=== PATIENT | male | born 2000 | race African-American/Black ===

== ENCOUNTER 2023-12-02 06:54 | Emergency (ER) | payer MEDICAID, SELFPAY ==
[2023-12-02 07:09] VITALS: BP 131/75; PULSE 81; RESP 16; TEMP 36.5; O2SAT 96; BMI 24.8
--- NOTE | 2023-12-02 07:45 | ED.DENTAL ---
HPI - Dental/Oral General Chief complaint: Dental/Oral Stated complaint: dental pain Time Seen by Provider: 12/02/23 07:15 Source: patient Mode of arrival: ambulatory Limitations: no limitations History of Present Illness HPI Narrative: hx of dental pain in past worsening overnight has dentist appointment today no fevers able to open mouth no recent trauma MD Complaint: tooth pain Location: Tooth # (17) Onset (ago): day(s) (1) Duration: constant Severity: moderate Relieving factors: nothing Exacerbating factors: chewing Context: history of dental caries Associated symptoms: gum swelling Treatment prior to arrival: oral analgesic Related Data Previous Rx's Medication Instructions Recorded amoxicillin 500 mg capsule 500 mg PO BID #13 caps 12/02/23 Allergies Allergy/AdvReac Type Severity Reaction Status Date / Time No Known Allergies Allergy Verified 12/02/23 07:08 Review of Systems Review of Systems: Constitutional : No Fever, No Chills ENT/Mouth : No swallowing difficulty, no change in voice, positive dental pain, positive jaw pain, no facial swelling Eyes: No Eye Pain, No Swelling Cardiovascular : No Chest Pain, No SOB Respiratory : No Cough, No Sputum Gastrointestinal : No Nausea, No Vomiting, No Diarrhea Genitourinary : No Dysuria Musculoskeletal : No Myalgias Skin : No rash Neuro : No Weakness, No Numbness, No Headache All other systems reviewed and are negative PMFSH Social History Social History Advance Directives: No Advance Directives Information Provided: No Physical Exam Vital Signs: Vital Signs: Last Vital Signs Temp 97.7 F 12/02/23 07:09 Pulse 81 12/02/23 07:09 Resp 16 12/02/23 07:09 BP 131/75 12/02/23 07:09 Pulse Ox 96 12/02/23 07:09 O2 Del Method Room Air 12/02/23 07:09 BMI result Body Mass Index 24.8 Appearance: Alert. Oriented X3. No acute distress. Eyes: Pupils equal, round and reactive to light. ENT: Pharynx normal. no trismus, some mild diffuse decay, L lower last molar is impacted but no fluctuance or abscess noted, no submandibular or sublingual swelling Neck: Normal inspection. Neck supple. CVS: Normal heart rate and rhythm. Respiratory: No respiratory distress. Abdomen: Soft and non-tender. Skin: Skin warm and dry. Normal skin color. Extremities: No lower extremity edema. Neuro: Oriented X 3. No motor deficit. No sensory deficit. Medical Decision Making Medical Decision Making [facility] Narrative: 22 yo male no sig PMH here with intermittent chronic L lower molar pain - not toxic no trismus no signs of abscess only tried tylenol at home has dentist appointment today no signs of deeper space infection will need IM toradol and amoxicillin follow up with dentist today Differential Diagnosis Differential Diagnoses: The differential diagnosis associated with the presentation includes toothache, dental caries Admission/Observation Consideration of admission/observation: Escalation of care including admission/observation considered no signs of deeper space infection stable for DC Independent Historian Clinical information obtained from an independent historian. History obtained from or confirmed by: Other (family) Prescription Management I considered prescription management with: Pain Medication and Antibiotic Discharge Plan Discharge Clinical Impression: Toothache Patient Disposition: Home, Self-Care Instructions: Toothache (ED) Additional Instructions: return for worsening pain, fevers, facial swelling, inability to swallow or any other concerns. no NSAIDs (tylenol is okay) until 3pm today follow up with dentist as planned today Prescriptions: New amoxicillin 500 mg capsule 500 mg PO BID Qty: 13 0RF
[2023-12-02] MEDS: Amoxicillin 500 MG CAPSULE PO (08:04)
[2023-12-02] MEDS: Ketorolac Tromethamine 30 MG/ML VIAL IM (08:04)
== END 2023-12-02 08:08 | disposition home or self-care (01) ==
PROVIDERS: Emergency Provider Emergency Medicine
DX: K08.89 Other specified disorders of teeth and supporting structures (principal)
CPT/HCPCS: 96372; 99283; 99284; J1885

== ENCOUNTER 2025-03-30 11:03 | Emergency (ER) | payer MEDICAID, SELFPAY ==
[2025-03-30 12:01] VITALS: BP 129/55; PULSE 58; RESP 18; TEMP 36.6; O2SAT 98; BMI 26.5
--- NOTE | 2025-03-30 12:02 | ED.BACK ---
HPI - Back Pain/Injury General Chief Complaint: Back Pain/Injury Stated Complaint: Lower back pain Time Seen by Provider: 03/30/25 12:06 Source: RN notes reviewed and old records reviewed History of Present Illness ED Provider: Nya Link PA-C HPI Narrative: 24-year-old male with no significant past medical history presenting to the ED complaining of left sudden low back pain since 05:00. Reports pain is intermittent. Admits to playing football outside with brothers yesterday and jumping knee ear to catch a ball which he believes caused symptoms. Denies direct injury/ trauma or fall. Denies radiation of pain down lower extremity to abdomen. Denies numbness, tingling, weakness, incontinence/ retention, fever Related Data Previous Rx's ?Medication ?Instructions ?Recorded amoxicillin 500 mg capsule 500 mg PO BID #13 caps 12/02/23 acetaminophen 500 mg tablet 500 mg PO Q6H PRN fever or pain 03/30/25 (Tylenol Extra Strength) #14 tabs cyclobenzaprine 5 mg tablet 5 mg PO Q8H PRN pain (scale score 03/30/25 7-10) 5 days #14 tabs lidocaine 5 % topical patch 1 patch topical DAILY PRN pain #30 03/30/25 (Lidoderm) ea naproxen 500 mg tablet 500 mg PO BID PRN pain 10 days #20 03/30/25 tabs Allergies Allergy/AdvReac Type Severity Reaction Status Date / Time No Known Allergies Allergy Verified 03/30/25 12:04 Review of Systems Review of Systems: Yes all other systems are reviewed and are negative Constitutional: Constitutional: Reports as per HPI Neurologic: Denies Sensory deficit (Neuro) [facility] Past Medical History Attestation statement: The following information was validated with the patient. Source: old records reviewed Physical Exam Vital Signs: Vital Signs: Last Vital Signs Temp 98 F 03/30/25 12:01 Pulse 58 03/30/25 12:01 Resp 18 03/30/25 12:01 BP 129/55 L 03/30/25 12:01 Pulse Ox 98 03/30/25 12:01 BMI result Body Mass Index 26.5 Const: General: cooperative, healthy appearing and no acute distress Orientation/consciousness: patient oriented x3 Limitations: no limitations HEENT: Head: Yes normal to inspection and Yes atraumatic Ears: hearing grossly normal bilaterally General nose exam: Normal external nose present Face and sinus: Yes normal facial exam Eyes: General: appearance normal, both eyes and all related structures EOM: EOMs intact bilaterally Neck: Neck: Yes normal visual inspection and Yes no meningeal signs Resp: Effort & Inspection: normal respiratory effort and no respiratory distress Cardio: Rate: regular rate GI: Inspection: Yes normal to inspection Palpation (GI): Soft to palpation, nontender, no guarding and not rigid : General: Yes no CVA tenderness Back/Spine/Pelvis: Other: No midline cervical/thoracic/lumbar spinous tenderness/step-off or deformity. + left-sided lower lumbar MSK reproducible tenderness to palpation. No erythema / ecchymosis or rash. No reproducible rib tenderness. No crepitus. Back: no CVA tenderness Skin: Rashes: no rashes Wounds: no wounds Neuro: Other: Strength intact throughout. No saddle anesthesia. Sensation intact to light touch. Neurovascular intact distally General: patient oriented x3, gait normal, tone normal, moves all extremities, no meningeal signs and no focal motor deficits Cranial nerves: Yes CN's II-XII intact bilaterally Gait exam (Neuro): Normal gait present Motor exam (neuro): 5/5 motor strength present throughout Sensory Exam: No Sensory deficit (Neuro) Extrem: General: Yes normal to inspection Medical Decision Making Medical Decision Making MDM Narrative: 24-year-old male with no significant past medical history presenting to the ED complaining of left sudden low back pain since 05:00. On exam vital signs stable, NAD, nontoxic appearing, abdomen is soft and nontender, no midline spinous tenderness throughout. Reproducible left lumbar MSK tenderness. No red flag symptoms. No saddle anesthesia. Ambulating with steady gait. Concern for MSK pain /strain /spasming. Lower suspicion for fracture, cauda equina, cord compression, epidural abscess, renal stone Plan: Pain control, PCP follow up Please refer to course for remaining clinical decision making, interpretation of labs/imaging results, and discussions with consultants and/or family members. Results discussed with patient including worrisome signs and symptoms and strict return precautions, and when to return to the emergency department. They verbalized understanding and feel safe for discharge at this time. Differential Diagnosis Differential Diagnoses: The differential diagnosis associated with the presentation includes As above Independent Historian x-rays considered however not needed at this time External Record Review External record reviewed: Inpatient record, Office record, Outpatient record, Prior outpatient labs, Prior outpatient radiology, Primary care record and Outside ED record Tests considered The following testing was considered but not selected: As above Prescription Management I considered prescription management with: Other Chronic Conditions Patient?s care impacted by: Other Social Determinants Patient?s care significantly limited by Social Determinants of Health including: Other Social Determinant of Health Discharge Plan Discharge Clinical Impression: Strain of lumbar region Patient Disposition: Home, Self-Care Instructions: Back Pain (ED) Additional Instructions: Your pain is likely musculoskeletal Flexeril is a muscle relaxer, take at night as it makes you drowsy, do not drive, drink alcohol, or operate machinery while taking it Naproxen as an anti-inflammatory / pain medication, take with food Lidoderm patches are numbing patches, apply to painful area In addition take Tylenol at home If symptoms persist or worsen, pain becomes unbearable, you developed urinary retention or incontinence, or weakness return to the ED Prescriptions: New acetaminophen [Tylenol Extra Strength] 500 mg tablet 500 mg PO Q6H PRN (Reason: fever or pain) Qty: 14 0RF lidocaine [Lidoderm] 5 % adhesive patch,medicated 1 patch topical DAILY MDD remove after 12 hours PRN (Reason: pain) Qty: 30 0RF Rx Instructions: leave on most painful area for up to 12 hrs naproxen 500 mg tablet 500 mg PO BID PRN (Reason: pain) 10 Days Qty: 20 0RF cyclobenzaprine 5 mg tablet 5 mg PO Q8H PRN (Reason: pain (scale score 7-10)) 5 Days Qty: 14 0RF No Action amoxicillin 500 mg capsule 500 mg PO BID Qty: 13 0RF Referrals: Physician,None [Primary Care Provider] - 5 days Stand Alone Forms: Work/School Release Print Language: Slovak
[2025-03-30 12:17] VITALS: BP 129/55; PULSE 58; RESP 18; TEMP 36.6; O2SAT 98
--- OUTSIDE RECORDS SUMMARY | 2025-03-30 14:22 | XMS_ITS | Encounter Summary ---
Author Organization [facility] Address [address] [place] [address] Care Team Providers Care Notching Press Operator Name Role Phone Kelin Roman Primary Care Provider [phone] Encounter Details Date Type Department Care Team (Late st Contact Info) Description 07/15/2022 Dental Interim Note Caring [facility] Dental [address] [place] [phone] Barb Fatima [address] [place] [address] Social History Tobacco Use Types Packs/Day Years Used Date Smoking Tobacco: Every Day Cigarettes Social Connections Answer Date Recorded Social Connections and Isolation 0 03/07/2022 Financial Resource Strain Answer Date R ecorded Financial Resource Strain 0 2021 Stress Answer Date Recorded Stress 0 03/07/2022 Physical Activity Answer Date Recorded Physical Activity 0 03/07/2022 Food Insecurity Answer Date Recorded Food 0 03/07/2022 Transportation Needs Answer Date Record ed Transportation 0 03/07/2022 Housing Stability Answer Date Recorded Housing 0 03/07/2022 Safety and Environment Answer Date Adalid rded Safety 0 03/07/2022 Utilities Answer Date Recorded Utilities 0 03/07/2022 Employment Answer Date Recorded Employment 0 03/07/2022 Sex and Gender Information Value Date Recorded Sex Assigned at Male 03/28/2022 9:22 AM PDT Legal Sex Male 11:06 AM PDT Gender Identity Male 03/28/2022 9:22 AM PDT Sexual Orientation Straight 03/28/2022 9: 22 AM PDT documented as of this encounter Plan of Treatment Not on file documented as of this encounter Visit Diagnoses Not on filedocumented in this encounter Care Teams Notching Press Operator Relationship Specialty Start Date End Date Kelin Roman PA [facility] [place] [address] PCP - General Primary Care 03/16/24 documented as of this encounter
== END 2025-03-30 12:17 | disposition home or self-care (01) ==
LOC: HO.ED 12:17
PROVIDERS: Emergency Provider Emergency Medicine
DX: S39.012A Strain of muscle, fascia and tendon of lower back, initial encounter (principal); X50.1XXA Overexertion from prolonged static or awkward postures, initial encounter; X50.9XXA Other and unspecified overexertion or strenuous movements or postures, initial encounter; Y93.61 Activity, american tackle football; Y92.39 Other specified sports and athletic area as the place of occurrence of the external cause; Y99.8 Other external cause status
CPT/HCPCS: 99282; 99283

== ENCOUNTER 2025-06-12 09:41 | Emergency (ER) | payer MEDICAID, SELFPAY ==
[2025-06-12 10:02] VITALS: BP 117/55; PULSE 60; RESP 16; TEMP 37; O2SAT 97; BMI 26.2
--- NOTE | 2025-06-12 10:05 | ED_ITS ---
HPI - Dental/Oral General Chief complaint: Dental/Oral Stated complaint: dental issues Time Seen by Provider: 06/12/25 10:04 Source: patient Mode of arrival: ambulatory Limitations: no limitations History of Present Illness ED Provider: DEB BAUTISTA PA-C HPI Narrative: 24-year-old male presents to the ED today for evaluation of tooth pain since yesterday. He reports broken right lower molar. Reports increasing pain to this area. Denies any discharge. Denies fever, chills, facial swelling, difficulty swallowing or opening his mouth. No recent trauma or facial injury. He has not seen a dentist in over a year. Related Data Previous Rx's ?Medication ?Instructions ?Recorded amoxicillin 500 mg capsule 500 mg PO BID #13 caps 05/18 acetaminophen 500 mg tablet 500 mg PO Q6H PRN fever or pain 03/30/25 (Tylenol Extra Strength) #14 tabs cyclobenzaprine 5 mg tablet 5 mg PO Q8H PRN pain (scal e score 03/30/25 7-10) 5 days #14 tabs lidocaine 5 % topical patch 1 patch topical DAILY PRN pain #30 03/30/25 (Lidoderm) ea naproxen 500 mg tablet 500 mg PO BID PRN pain 10 da ys #20 03/30/25 tabs amoxicillin 875 mg-potassium 1 tab PO Q12H 7 days #14 tabs 06/12/25 clavulanate 125 mg tablet ketorolac 10 mg tablet 10 mg PO Q8H PRN pain (scale score 06/12/25 4-6) 5 days #15 tabs Allergies Allergy/AdvReac Type Severity Reaction Status Date / Time No Known Allergies Allergy Verified 06/12/25 10:03 Review of Systems Review of Systems: Constitutional: No fever, chills, fatigue, night sweats, weight changes ENT/Mouth: No ear pain, hearing loss, nasal congestion, sinus pain, rhinorrhea, sore throat, +dental pain Eyes: No eye pain, swelling, redness, vision changes, discharge Cardio: No chest pain, palpitations, VALENZUELA, orthopnea, peripheral edema Pulm: No SOB, cough, sputum, wheezing, dyspnea, hemoptysis GI: No nausea, vomiting, hematemesis, abdominal pain, diarrhea, constipation, hematochezia, melena : No irregular bleeding, dysuria, frequency, urgency, hesitancy, hematuria, flank pain, urinary flow changes, urinary incontinence or retention MSK: No back pain, neck pain, joint pain, myalgias Skin: No lesions, rashes Neuro: No weakness, numbness, paresthesias, LOC, dizziness, headache Psych: No anxiety/panic, depression, SI/HI, AH/VH All other systems reviewed and are negative. [facility] Past Medical History Attestation statement: The following information was validated with the patient. Source: old records reviewed and nursing notes reviewed Social History Social History Advance Directives: No Advance Directives Information Provided: Yes Physical Exam Vital Signs: Vital Signs: Last Vital Signs Temp 98.6 F 06/12/25 10:02 Pulse 60 06/12/25 10:02 Resp 16 06/12/25 10:02 BP 117/55 L 06/12/25 10:02 Pulse Ox 97 06/12/25 10:02 O2 Del Method Room Air 06/12/25 10:02 BMI result Body Mass Index 26.2 Vital signs stable, afebrile. Const: General: cooperative, comfortable and no acute distress Orientation/consciousness: patient oriented x3 Limitations: no limitations HEENT: Other: + No facial edema. Tongue and lips wnl + multiple dental caries and poor dentit ion. broken right lower molar with localized periapical swelling to the buccal ginginva. No pointing. No active bleeding/ discharge. TTP. No palpable fluctuance. + No edema to buccal mucosa + Posterior oropharynx without erythema/ edema. Uvula midline. Controlling secretions and speaking in complete sentences + No submandublar or submental LAD + No cervical LAD + no anterior neck swelling Head: Yes normal to inspection, Yes No palpable skull fracture present, Yes normocephalic and Yes atraumatic Ears: hearing grossly normal bilaterally, external ears normal, TM's normal bilaterally, EAC's normal, mastoids normal and no periauricular adenopathy Eyes: General: appearance normal, both eyes and all related structures Conjunctivae: conjunctivae normal Sclerae: sclerae normal Pupils: Equal, round and reactive pupils present Neck: Neck: Yes normal visual inspection and Yes no lymphadenopathy Resp: Effort & Inspection: normal respiratory effort and no stridor Auscultation: clear to auscultation bilaterally Cardio: Rate: regular rate Rhythm: regular rhythm Skin: General skin exam: no rashes or lesions noted Neuro: General: patient oriented x3 and gait normal Cranial nerves: Yes Equal, round and reactive pupils present Course Course Course Narrative: Patient noted to have dental infection. There is no evidence of abscess that warrants drainage at this time. Will treat patient's pain with dose of toradol in ED and patient will be discharged home on augmentin to ensure there is no worsening infection for follow-up with dentist. Patient advised to follow up with dentist this week. A referral has been provided. Patient has remained stable throughout ED visit today. I discussed worrisome signs and symptoms and when to return to the ED. All questions answered at this time. Patient is agreeable with disposition and stable for discharge. Medical Decision Making Medical Decision Making [facility] Narrative: 24-year-old male presents to the ED today for evaluation of tooth pain since yesterday. vital signs stable, afebrile. he is well appearing and in NAD. see exam portion for findings. Differential includes dental/ periapical abscess/infection. Unlikely mono, herpes, sialadenitis, sialolithiasis, POMOLOGIST, retropharyngeal abscess, deep neck infection, osteomyelitis, facial cellulitis/ abscess, lymphoma, ludwigs angina. Plan for pain control and discharge home with antibiotics + dentist follow up. Differential Diagnosis Differential Diagnoses: The differential diagnosis associated with the presentation includes as above. Admission/Observation Not indicated. Tests considered The following testing was considered but not selected: I considered obtaining a CT of the soft tissues neck however these is no evidence of ludwigs angina or concern for deep tissue infection. Not warranted at this time. Prescription Management I considered prescription management with: Pain Medication (toradol) and Antibiotic (augmentin) Chronic Conditions Patient?s care impacted by: Other (augmentin) Social Determinants Patient?s care significantly limited by Social Determinants of Health including: Other Social Determinant of Health Critical Care Time Critical Care Time Critical Care Time: No Discharge Plan Discharge Clinical Impression: Toothache Patient Disposition: Home, Self-Care Instructions: Amoxicillin/Clavulanate Potassium (By mouth), Ketorolac (By mouth) (Toradol), Toothache (ED) Additional Instructions: You were evaluated in ED today for dental pain. You have a dental infection. Augmentin is an antibiotic that has been sent to your pharmacy for treatment. Take this as prescribed and do not skip any doses. Take this to completion or the infection may persist or worsen. On Augmentin, softer bowel movements are to be expected. Call your provider if you move your bowels more than 4 times a day, your bowel movements are almost all liquid, or you get a rash.? Take tylenol at home as needed for pain. Toradol is a pain medication that has been sent to your pharmacy for you to take for break-through pain. Use this with caution and do not use this with other NSAIDs such as Motrin/ibuprofen as this can cause increased risk of GI bleeding. YOU NEED TO FOLLOW UP WITH A DENTIST. You have been provided with a referral to [facility]. They are currently taking new clients. Call them to make an appointment. They will not call you. Return with new or worsening symptoms. In the case of an emergency call 411. [facility]: [phone] [address] [facility] [address] Prescriptions: New ketorolac 10 mg tablet 10 mg PO Q8H PRN (Reason: pain (scale score 4-6)) 5 Days Qty: 15 0RF amoxicillin-pot clavulanate 875-125 mg tablet 1 tab PO Q12H 7 Days Qty: 14 0RF No Action amoxicillin 500 mg capsule 500 mg PO BID Qty: 13 0RF acetaminophen [Tylenol Extra Strength] 500 mg tablet 500 mg PO Q6H PRN (Reason: fever or pain) Qty: 14 0RF lidocaine [Lidoderm] 5 % adhesive patch,medicated 1 patch topical DAILY MDD remove after 12 hours PRN (Reason: pain) Qty: 30 0RF Rx Instructions: leave on most painful area for up to 12 hrs naproxen 500 mg tablet 500 mg PO BID PRN (Reason: pain) 10 Days Qty: 20 0RF cyclobenzaprine 5 mg tablet 5 mg PO Q8H PRN (Reason: pain (scale score 7-10)) 5 Days Qty: 14 0RF Referrals: Physician,None [Primary Care Provider, Medical] Discharge Date/Time: 06/12/25 10:59 Print Language: Italian
[2025-06-12 10:59] VITALS: BP 117/55; PULSE 60; RESP 16; TEMP 37; O2SAT 97
--- OUTSIDE RECORDS SUMMARY | 2025-06-12 11:07 | XMS_ITS | Clinical Summary ---
Author Organization [facility] Address [address] [place] [address] Care Team Providers Care Cowlman Name Role Phone Unavailable Primary Care Provider Unavailabl e Encounters Date Type Department Care Team Description 05/16/2025 Population Health Risk Score [facility] (C3) Department [address] [facility] [address] [place] [id number] Provider, Population Health Generic from Last 3 Months Social History Tobacco Use Types Packs/Day Years Used Date Smoking Tobacco: Never Assessed Sex and Gender Information Value Date Recorded Sex Assigned at Not on file Legal Sex Male 9:31 PM EDT Gender Identity Not on file Sexual Orientation Not on file Plan of Treatment Health Maintenance Due Date Last Done Comments Chlamydia and Gonorrhea Screening 2002 Depression Screening 2002 HIV Screening 2002 SDOH Screening 2002 Disability Screening 2002 Alcohol/Substance Use Screening 2014 Tobacco Screening 2014 Family Planning (PISQ) 2017 Meningococcal B Vaccine (2 of 2 - Trumenba SCDM 2-dose series) 12/01/2020 07/31/2020, 11/22/2019 Hepatitis C Screening 2020 DTaP/Tdap/Td Vaccines (1 - Tdap) 2021 Hepatitis B Vaccines (1 of 3 - 19+ 3-dose series) 2021 COVID-19 Vaccine ( - season) 2024 Influenza Vaccine (#1) 2025 , 07/06/2018, 08/10/2017, Additional history exists Zoster Vaccines (1 of 2) 2052 RSV Patients and Patients Aged 60 years or older (1 - 1-dose 75+ series) 2077 HPV Vaccines Completed 11/16/2018, 11/05/2017 Meningococcal Vaccine Completed 07/31/2020, 015 HIB Vaccines Aged Out No longer eligi ble based on patient's age to complete this topic Hepatitis A Vaccines Aged Out No long er eligible based on patient's age to complete this topic IPV Vaccines Aged Out No longer eligi ble based on patient's age to complete this topic Pneumococcal Vaccine: Pediatrics (0 to 5 Years) and At-Risk Patients (6 to 49) Years Aged Out No longer eligible based on patient's age to complete this topic RSV under 20 months Aged Out No longe r eligible based on patient's age to complete this topic Rotavirus Vaccines Aged Out No longer eligible based on patient's age to complete this topic
--- OUTSIDE RECORDS SUMMARY | 2025-06-12 11:07 | XMS_ITS | Encounter Summary ---
Author Organization [facility] Address [address] [place] [address] Care Team Providers Care Account Classification Clerk Name Role Phone Kelin Roman Primary Care Provider [phone] Encounter Details Date Type Department Care Team (Late st Contact Info) Description 07/15/2022 Dental Interim Note Caring [facility] Dental [address] [place] [phone] Barb Fatima [address] [place] [address] Social History Tobacco Use Types Packs/Day Years [...] on filedocumented in this encounter Care Teams Account Classification Clerk Relationship Specialty Start Date End Date Kelin Roman PA [facility] [place] [address] PCP - General Primary Care 03/16/24 documented as of this encounter
== END 2025-06-12 10:59 | disposition home or self-care (01) ==
PROVIDERS: Emergency Provider Emergency Medicine
DX: K08.89 Other specified disorders of teeth and supporting structures (principal)
CPT/HCPCS: 96372; 96374; 99283; 99284; J1885

== ENCOUNTER 2025-07-13 10:09 | Emergency (ER) | payer MEDICAID, SELFPAY ==
--- NOTE | ~2025-07-13 | XR_ITS ---
EXAMINATION: XR CHEST 1 VIEW HISTORY: chest tightness, cough COMPARISON: There are no prior studies available for comparison. FINDINGS: A single PA view of the chest is submitted. The lungs are expanded and clear. There is no pleural effusion, pneumothorax, or pulmonary vascular congestion. The heart is normal in size. The bones are intact. XR/XR chest 1V IMPRESSION: Clear lungs. Electronically signed by: Shane Guardado MD 07/13/2025 10:49 AM EDT
[2025-07-13 10:24] VITALS: BP 123/70; PULSE 67; RESP 16; TEMP 36.9; O2SAT 99; BMI 25.1
[2025-07-13 10:28] VITALS: BP 123/70; PULSE 67; RESP 16; TEMP 36.9; O2SAT 99
--- NOTE | 2025-07-13 10:30 | ED.GENADULT ---
HPI - General Adult General Chief complaint: Upper Respiratory Symptoms Stated complaint: chest tightness sore throat Time Seen by Provider: 07/13/25 10:19 Source: patient, family (Girlfriend at bedside), RN notes reviewed and old records reviewed Mode of arrival: ambulatory Limitations: no limitations History of Present Illness ED Provider: FADUMO Panchal HPI narrative: 24-year-old male without significant medical history presents to the ED due to 2 days of chest tightness, sore throat, chills, body aches, productive cough. Patient has not checked for fever at home. Patient states his girlfriend has been sick with same symptoms. Explains that he is experiencing a tightness in his lungs/chest on deep inspiration. Denies chest pain, shortness of breath, abdominal pain, nausea, vomiting, diarrhea, urinary symptoms Related Data Previous Rx's ?Medication ?Instructions ?Recorded amoxicillin 500 mg capsule 500 mg PO BID #13 caps 12/02/23 acetaminophen 500 mg tablet 500 mg PO Q6H PRN fever or pain 03/30/25 (Tylenol Extra Strength) #14 tabs cyclobenzaprine 5 mg tablet 5 mg PO Q8H PRN pain (scale score 03/30/25 7-10) 5 days #14 tabs lidocaine 5 % topical patch 1 patch topical DAILY PRN pain #30 03/30/25 (Lidoderm) ea naproxen 500 mg tablet 500 mg PO BID PRN pain 10 days #20 03/30/25 tabs amoxicillin 875 mg-potassium 1 tab PO Q12H 7 days #14 tabs 06/12/25 clavulanate 125 mg tablet ketorolac 10 mg tablet 10 mg PO Q8H PRN pain (scale score 06/12/25 4-6) 5 days #15 tabs amoxicillin 500 mg capsule 500 mg PO BID #20 caps 07/13/25 Allergies Allergy/AdvReac Type Severity Reaction Status Date / Time No Known Allergies Allergy Verified 07/13/25 10:24 Review of Systems Review of Systems: CONST: Negative for fever. POS body aches, chills HENT: Negative for neck pain/stiffness, headache, congestion, sore throat, swelling. EYES: Negative for discharge/pain or vision changes. RESP: Negative for hemoptysis and shortness of breath. POS productive cough CV: Negative chest pain, difficulty breathing, palpitations. POS chest tightness ABD: Negative pain, nausea, vomiting. : Negative increase frequency, dysuria, blood in urine or stool. MUSC: Negative for muscle aches, edema. SKIN: Negative rash, lesions/sores. NEURO: Negative headache, dizziness, weakness. Yes all other systems are reviewed and are negative [facility] Past Medical History Attestation statement: The following information was validated with the patient. Source: old records reviewed and nursing notes reviewed Social History Social History Smoked in Last 30 Days: No Use of substances other than those prescribed or required for medical reasons: No Advance Directives: No Advance Directives Information Provided: Yes Do you have a plan to hurt others: No Plan Physical Exam ED Vital Signs: Vital Signs - 24 hr 07/13/25 10:24 07/13/25 10:28 07/13/25 10:28 Temperature 98.4 F 98.4 F Pulse Rate 67 67 Respiratory Rate 16 16 Blood Pressure 123/70 123/70 Pulse Oximetry 99 99 99 Oxygen Delivery Method Room Air Room Air Room Air BMI result Body Mass Index 25.1 GENERAL APPEARANCE: ?AxOx4, generally well-appearing, no acute distress. HEENT: ?NC, AT. MMM. EOMI, clear conjunctiva, oropharynx clear. NECK: ?Supple without lymphadenopathy.? No stiffness or restricted ROM. HEART:? Normal rate and regular rhythm, normal S1/S2, no m/r/g LUNGS: Diminished breath sounds of B/L lung bases, no wheezing, ronchi, course lung sounds auscultated ABDOMEN: ?Soft, nontender, nondistended with good bowel sounds heard. BACK: No CVAT, no obvious deformity. EXTREMITIES: ?Without cyanosis, clubbing or edema. NEUROLOGICAL: ?Grossly nonfocal. Alert and oriented, moving all 4 extremities. Observed to ambulate with normal gait. Skin: ?Warm and dry without any rash. Medications Administered Discontinued Medications Generic Name Dose Route Start Last Admin Trade Name Freq PRN Reason Stop Dose Admin Acetaminophen 975 mg 07/13/25 10:39 07/13/25 11:10 Acetaminophen 325 Mg Tablet PO 07/13/25 10:40 975 mg ONCE ONE Administration Medical Decision Making Medical Decision Making MDM Narrative: 24-year-old male without significant medical history presents to the ED due to 2 days of chest tightness, sore throat, chills, body aches, productive cough. Patient lives with girlfriend who is sick with same symptoms. Course Labs without leukocytosis/leukopenia, H&H stable, no electrolyte abnormality. Viral serology negative. Rapid strep positive. CXR negative for acute cardiopulmonary process Patient will be discharged with a 10 day course of amoxicillin for strep pharyngitis. I counseled patient to follow up with his primary care provider to ensure resolution of symptoms, and counseled him to complete entire course of medication even if his symptoms resolve. I counseled patient to throw a tooth brushes, not sure you tonsils with his family as it can spread the bacterial infection. I counseled patient on strict return precautions. Patient feels comfortable to go home for self-care at this time, and is in agreement with the plan. Differential Diagnosis Differential Diagnoses: The differential diagnosis associated with the presentation includes COVID Flu Viral illness Pharyngitis Admission/Observation Consideration of admission/observation: Escalation of care including admission/observation considered Lab Data MDM Lab Attestation statement: I reviewed the patient's lab results. 07/13/25 10:54 07/13/25 10:54 Labs: Lab Results 07/13/25 07/13/25 Range/Units 10:18 10:54 WBC 6.3 (4.8-10.8) X10*3/uL RBC 5.05 (4.60-5.80) X10*6/uL Hgb 15.1 (14.0-18.0) g/dl Hct 42.6 (42.0-52.0) % MCV 84.4 (80.0-98.0) fL MCH 29.9 (27.0-33.0) pg MCHC 35.4 (31.0-36.0) g/dl RDW 12.8 (11.0-16.0) % Plt Count 249 (160-400) X10*3/uL MPV 9.6 (9.4-12.4) fL Immature Gran % (Auto) 0.2 (0.0-0.4) % Neut % (Auto) 53.3 (45-73) % Lymph % (Auto) 34.9 (20-40) % Stephens % (Auto) 10.1 (2-11) % Eos % (Auto) 0.6 (0-4) % Baso % (Auto) 0.9 (0-2) % Lymph # (Auto) 2.2 (1.2-4.9) X10*3/uL Stephens # (Auto) 0.6 (0.1-1.2) X10*3/uL Eos # (Auto) 0.0 (0.0-0.4) X10*3/uL Baso # (Auto) 0.1 (0.0-0.2) X10*3/uL Abs Immat Gran (auto) 0.01 (0.00-0.03) X10*3/uL Absolute Neuts (auto) 3.4 (2.0-8.3) x10*3/uL Absolute Nucleated RBC 0.000 (0.0-0.012) X10*3/uL Nucleated RBC % (auto) 0.0 (0.0-0.2) /100WBC Sodium 141 (135-145) mmol/L Potassium 4.2 (3.3-5.1) mmol/L Chloride 107 (96-108) mmol/L Carbon Dioxide 27 (22-29) mmol/L Anion Gap 11 L (12-20) BUN 8 L (9-16) mg/dL Creatinine 0.97 (0.5-1.4) mg/dL Estim Creat Clear Calc 127.2 Estimated GFR > 60 Random Glucose 106 (60-115) mg/dL Calcium 9.7 (8.4-10.2) mg/dL Magnesium 2.3 (1.6-2.6) mg/dL Total Bilirubin 0.8 (0.0-1.0) mg/dL AST 33 (5-37) U/L ALT 36 (0-40) U/L Alkaline Phosphatase 72 (39-117) U/L Total Protein 7.6 (6.5-8.0) g/dL Albumin 4.9 (3.5-5.0) g/dL COVID-19 (JAIME) Negative (Negative) COVID-19 Clin Com See Note S. pyogenes GrpA KARMA Positive A (Negative) Independent Interpretation I performed an independent interpretation of an: Plain X-Ray Interpretation: I personally interpreted the CXR which was negative for cardiomegaly, pleural effusion, pulmonary edema, infiltrates or consolidations, I agree with the radiologist's interpretation Radiology Impression Discussion of test interpretation with radiology: I have reviewed the radiologist's reading. Radiologist Impression: CXR FINDINGS: A single PA view of the chest is submitted. The lungs are expanded and clear. There is no pleural effusion, pneumothorax, or pulmonary vascular congestion. The heart is normal in size. The bones are intact. XR/XR chest 1V IMPRESSION: Clear lungs. Electronically signed by: Shane Guardado MD 07/13/2025 10:49 AM EDT RP Dictated By: Shane Guardado MD Signed By: <Electronically signed by Shane Guardado MD in OV> 07/13/25 1049 Independent Historian Clinical information obtained from an independent historian. History obtained from or confirmed by: Spouse (Girlfriend at bedside corroborating history) External Record Review External record reviewed: Inpatient record, Office record and Outpatient record Chronic Conditions Patient?s care impacted by: Other (No known medical history) Discharge Plan Discharge Clinical Impression: Strep throat Patient Disposition: Home, Self-Care Instructions: Strep Throat (ED) Additional Instructions: You were evaluated in the ED today due to sore throat, cough, chest tightness, body chills. Your swabs were positive for strep throat infection. Your lab work was reassuring that there was no significant white blood cell increase or electrolyte abnormality. Your chest x-ray was normal. You were medicated with 975 mg of oral Tylenol while in the department. You will be prescribed a 10 day course of amoxicillin which is an antibiotic to cover strep pharyngitis. This medication may make your stool soft, or cause GI upset. Please take this medication with food to prevent GI upset. Please throw a your toothbrush as using your toothbrush can reinfect you. Do not sure any straws or silverware with your family as this can spread to other family members. Please follow up with your primary care doctor to ensure resolution of your symptoms. Please complete the entire course of antibiotics even if your symptoms are improving. Please return to the emergency department if you experience fevers over 100.4? that are not controlled by Tylenol/Motrin, chest pain, shortness of breath, worsening sore throat, difficulty breathing or any new/worsening/concerning symptoms. Prescriptions: New amoxicillin 500 mg capsule 500 mg PO BID Qty: 20 0RF No Action amoxicillin 500 mg capsule 500 mg PO BID Qty: 13 0RF acetaminophen [Tylenol Extra Strength] 500 mg tablet 500 mg PO Q6H PRN (Reason: fever or pain) Qty: 14 0RF lidocaine [Lidoderm] 5 % adhesive patch,medicated 1 patch topical DAILY MDD remove after 12 hours PRN (Reason: pain) Qty: 30 0RF Rx Instructions: leave on most painful area for up to 12 hrs naproxen 500 mg tablet 500 mg PO BID PRN (Reason: pain) 10 Days Qty: 20 0RF cyclobenzaprine 5 mg tablet 5 mg PO Q8H PRN (Reason: pain (scale score 7-10)) 5 Days Qty: 14 0RF ketorolac 10 mg tablet 10 mg PO Q8H PRN (Reason: pain (scale score 4-6)) 5 Days Qty: 15 0RF amoxicillin-pot clavulanate 875-125 mg tablet 1 tab PO Q12H 7 Days Qty: 14 0RF Print Language: Sammarinese
[2025-07-13 10:39] LABS: IDNOW Serial# 08D9AD1C; Strep A Nucleic Acid Positive (Negative)
[2025-07-13 11:01] LABS: MANUAL DIFF FLAG NO
[2025-07-13 11:04] LABS: COVID-19 Test Negative (Negative); IDNOW Serial# 58CA691E
[2025-07-13 11:04] LABS: Hematocrit 42.6 % (42.0-52.0); Hemoglobin 15.1 g/dl (14.0-18.0); Imm Gran Abs Auto 0.01 X10*3/uL (0.00-0.03); Imm Gran Pct Auto 0.2 % (0.0-0.4); Lymphocytes Absolute Auto 2.2 X10*3/uL (1.2-4.9); Mean Corpuscular HGB Conc 35.4 g/dl (31.0-36.0); Mean Corpuscular Hemoglobin 29.9 pg (27.0-33.0); Mean Corpuscular Volume 84.4 fL (80.0-98.0); NRBC Abs Auto 0.000 X10*3/uL (0.0-0.012); NRBC Pct Auto 0.0 /100WBC (0.0-0.2); Platelet Count 249 X10*3/uL (160-400); Red Blood Count 5.05 X10*6/uL (4.60-5.80); White Blood Count 6.3 X10*3/uL (4.8-10.8)
[2025-07-13 11:19] LABS: Alanine Aminotransferase 36 U/L (0-40); Albumin Level 4.9 g/dL (3.5-5.0); Alkaline Phosphatase 72 U/L (39-117); Anion Gap 11 (12-20); Aspartate Amino Transferase 33 U/L (5-37); Blood Urea Nitrogen 8 mg/dL (9-16); Calcium 9.7 mg/dL (8.4-10.2); Carbon Dioxide 27 mmol/L (22-29); Chloride 107 mmol/L (96-108); Creatinine Clr Calc Pharmacy 127.2; Estimated Glomerular Filt Rate > 60; Magnesium 2.3 mg/dL (1.6-2.6); Potassium 4.2 mmol/L (3.3-5.1); Sodium 141 mmol/L (135-145); Total Protein 7.6 g/dL (6.5-8.0)
[2025-07-13 11:46] LABS: IDNOW Serial# 58CA691E; Influenza B2 Negative (Negative)
[2025-07-13 11:56] VITALS: BP 123/70; PULSE 67; RESP 16; TEMP 36.9; O2SAT 99
--- OUTSIDE RECORDS SUMMARY | 2025-07-13 13:41 | XMS_ITS | Encounter Summary ---
Author Organization [facility] Address [address] [place] [address] Care Team Providers Care Peanut Cleaner Name Role Phone Kelin Roman Primary Care Provider [phone] Encounter Details Date Type Department Care Team (Late st Contact Info) Description 07/15/2022 Dental Interim Note Caring [facility] [address] [place] [phone] Barb Fatima [address] [place] [address] Social History Tobacco Use Types Packs/Day Years [...] on filedocumented in this encounter Care Teams Peanut Cleaner Relationship Specialty Start Date End Date Kelin Roman PA [facility] [place] [address] PCP - General Primary Care 03/16/24 documented as of this encounter
--- OUTSIDE RECORDS SUMMARY | 2025-07-13 13:41 | XMS_ITS | Clinical Summary ---
Author Organization [facility] Address [address] [place] [address] Care Team Providers Care Intelligence Director Name Role Phone Unavailable Primary Care Provider Unavailabl e Encounters Date Type Department Care Team Description 05/16/2025 Population Health Risk Score [facility] (C[facility]) Department [address] [facility] [address] [place] [id number] Provider, Population Health Generic from Last 3 [...] - 19+ 3-dose series) 2021 COVID-19 Vaccine (1 - season) 2025 Influenza Vaccine (#1) 2025 , 07/06/2018, 08/10/2017, [...]
--- OUTSIDE RECORDS SUMMARY | 2025-07-13 13:41 | XMS_ITS | Clinical Summary ---
Author Organization [facility] Address [address] [place] [address] Care Team Providers Care Handle Finisher Name Role Phone Kelin Roman Primary Care Provider [phone] Source Comments PLEASE NOTE, if this patient is a minor, it may be UNLAWFUL to discuss sensitive information that is contained in these records (such as FAMILY PLANNING, MENTAL HEALTH or SUBSTANCE ABUSE) with the minor patient's parent or other person without the patient's specific authorization.[facility] Allergies No known active allergies Medications No known medications Active Problems Problem Noted Date Diagnosed Date Smoking 1/2 pack a day or less 03/12/2023 Immunizations Immunization Administration Dates Next Due Flu, Preservative Free 07/31/2020 HPV 9 (Gardasil) 11/16/2018 HPV, QUADRIVALENT 11/05/2017 INFLUENZA, SEASONAL, INJECTA BLE, PRESERVATIVE FREE 07/06/2018,08/10/2017,08/06/2016,08/15 MENINGOCOCCAL B (Bexsero), OMV 07/31/2020 MENINGOCOCCAL MCV4O (MENVEO) 06/15/2015 MENINGOCOCCAL MCV4P (MENACTRA) 07/31/2020 Meningococcal B (Trumenba), Recombinant 11/22/2019 Social History Tobacco Use Types Packs/Day Years Used Date Smoking Tobacco: Every Day Cigarettes Alcohol Use Standard Drinks/Week Comments Not Currently 0 (1 standard drink = 0.6 oz pur e alcohol) Social Connections Answer Date Recorded Connectedness 0 07/08/2024 Financial Resource Strain Answer Date R ecorded Financial Resource Strain 0 2021 Stress Answer Date Recorded Stress 0 03/07/2022 Physical Activity Answer Date Recorded Physical Activity 0 03/07/2022 Food Insecurity Answer Date Recorded Food 0 07/21/2024 Transportation Needs Answer Date Record ed Transportation 0 03/07/2022 Housing Stability Answer Date Recorded Housing 0 03/07/2022 Safety and Environment Answer Date Adalid rded Safety 0 03/07/2022 Utilities Answer Date Recorded Utilities 0 03/07/2022 Employment Answer Date Recorded Stress 0 07/08/2024 Sex and Gender Information Value Date Recorded Sex Assigned at Male 03/28/2022 9:22 AM PDT Legal Sex Male 11:06 AM PDT Gender Identity Male 03/28/2022 9:22 AM PDT Sexual Orientation Straight 03/28/2022 9: 22 AM PDT Last Filed Vital Signs Vital Sign Reading Time Taken Comments Blood Pressure 125/103 01/14/2024 9:54 AM EDT Pulse 92 01/14/2024 9:54 AM EDT Temperature 36.7 C (98.1 F) 03/12/2023 11:16 AM EDT Respiratory Rate 12 03/12/2023 11:16 AM EDT Oxygen Saturation 100% 03/12/2023 11:16 AM EDT Inhaled Oxygen Concentration - - Weight 77.6 kg (171 lb) 03/12/2023 11:16 AM EDT Height 175.3 cm (5' 9 ) 03/12/2023 11:16 AM EDT Body Mass Index 25.25 03/12/2023 11:16 AM EDT Plan of Treatment Health Maintenance Due Date Last Done Comments Anxiety Screening 2002 Dental Prophy 2002 Hepatitis C Screening 2002 Imm-Varicella (1 of 2 - 13+ 2-dose series) 12/30/2015 HIV Screening 2017 Imm-Meningococcal B (2 of 2 - Trumenba SCDM 2-dose series) 12/01/2020 07/31/2020, 11/22/2019 Imm-DTaP/Tdap/Td (1 - Tdap) 2021 Imm-Hepatitis B (1 of 3 - 19 + 3-dose series) 2021 Imm-Pneumococcal (1 of 2 - PCV) 2021 Dental BW 03/09/2023 03/07/2022 Dental Examination 03/09/2023 03/07/2022 Tobacco Cessation Counseling (#1) 03/11/2024 023 Tobacco Screening 03/12/2024 03/12/2023 Alcohol and Drug Screen 10/26/2024 03/12/2023 Depression Annual Screen 10/26/2024 03/12/2023 Hypertension Screening (#1) 01/13/2025 [id number] ( season) 2025 Imm-Influenza (#1) 2025 07/31/2020, 0 07/06/2018, 08/10/2017, Additional history exists Dental FMX/Pano 12/04/2028 12/02/2023, 03/07/2022 Imm-HPV Completed 11/16/2018, 11/05/2017 Procedures Procedure Name Priority Date/Time Associated Diagnosis Comments PANORAMIC RADIOGRAPHIC IMAGE Routine 12/02/2023 4:00 PM EST Caries of pulp Full INTRAORAL - COMP SERIES OF RADIOGRAPHIC IMAGES Routine 03/07/2022 2:20 PM EDT Caries Full COMP ORAL EVALUATION - NEW/ESTABLISHED PATIENT Routine 03/07/2022 2:20 PM EDT Caries from Last 3 Months or Most Recently Relevant to Health Maintenance Insurance [place] MED[place]ENT[place] Care Teams Handle Finisher Relationship Specialty Start Date End Date Kelin Roman PA [facility] [place] [address] PCP - General Primary Care 03/16/24
== END 2025-07-13 11:57 | disposition home or self-care (01) ==
PROVIDERS: Emergency Provider Emergency Medicine; PCP Dentist General Practice
DX: J02.0 Streptococcal pharyngitis (principal); R07.89 Other chest pain; R05.9 Cough, unspecified
CPT/HCPCS: 36415; 71045; 80053; 83735; 85025; 87502; 87635; 87651; 99283; 99285

== ENCOUNTER → 2025-07-13 10:31 | Outpatient (BNV) | payer MEDICAID, SELFPAY | PROVIDERS: Emergency Provider Emergency Medicine; PCP Dentist General Practice; Visit Provider Radiology Diagnostic Radiology | DX: R07.89 Other chest pain (principal); R05.9 Cough, unspecified | CPT/HCPCS: 71045 ==